=== PATIENT | female | born 1985 | race Asian ===

== ENCOUNTER 2022-01-07 12:17 | Inpatient (IN) | payer OTHER ==
[2022-01-07 13:58] VITALS: BMI 25.2
[2022-01-07] MEDS ORDERED: ONDANSETRON 4 MG/2 ML VIAL IVPUSH PRN (14:17)
[2022-01-07] MEDS ORDERED: morphine SULFATE/PF 1 MG/2 ML (2cc Syringe - QUVA) EP ONE (14:17)
[2022-01-07] MEDS ORDERED: CITRIC ACID/SODIUM CITRATE 30 ML UNIT-DOSE CUP PO ONE (15:00)
[2022-01-07] MEDS ORDERED: morphine SULFATE/PF 1 MG/2 ML (2cc Syringe - QUVA) ONE (15:08)
[2022-01-07] MEDS ORDERED: SODIUM CHLORIDE 0.9% P/F 10 ML VIAL IJ ONE (15:09)
[2022-01-07] MEDS ORDERED: ceFAZolin SODIUM 1 GM VIAL ONE (15:09)
[2022-01-07] MEDS ORDERED: ELECTROLYTE-148 SOLN 1,000 ML IV SCH (15:15)
[2022-01-07] MEDS ORDERED: PHENYLEPHRINE HCL 10 MG/1 ML SINGLE DOSE VIAL ONE (15:37)
[2022-01-07] MEDS ORDERED: OXYTOCIN 10 UNITS/ML VIAL ONE (15:48)
[2022-01-07] MEDS ORDERED: OXYTOCIN 20 UNITS in 0.9% NS 20 UNIT/1,000 ML INFUS.BAG IV ONE ×2 (15:48→17:24)
[2022-01-07] MEDS ORDERED: KETOROLAC TROMETHAMINE 30 MG/1 ML VIAL ONE (15:54)
[2022-01-07] MEDS ORDERED: ONDANSETRON 4 MG/2 ML VIAL ONE (15:54)
[2022-01-07] MEDS: OXYTOCIN 20 UNITS in 0.9% NS 20 UNIT/1,000 ML INFUS.BAG IV SCH (16:45)
[2022-01-07] MEDS ORDERED: SENNOSIDES/DOCUSATE COMBO (SENNA PLUS) TABLET (UD) PO PRN (16:51)
[2022-01-07] MEDS ORDERED: BENZOCAINE 20% 57 GM BOTTLE TP PRN (16:51)
[2022-01-07] MEDS ORDERED: METHYLERGONOVINE MALEATE 0.2 MG/1 ML AMP IM PRN (16:51)
[2022-01-07] MEDS ORDERED: WITCH HAZEL 50% (TUCKS) 40 PAD/JAR PAD TP PRN (16:51)
[2022-01-07] MEDS ORDERED: BENZOCAINE 28 GM HEMORRHOIDAL OINTMENT TP PRN (16:51)
[2022-01-07] MEDS ORDERED: ACETAMINOPHEN 325 MG TABLET (FP) PO PRN (16:51)
[2022-01-07 17:01] LABS: CORD BASE EXCESS -3.9 mmol/L (0-2); CORD HCO3 23.9 mmHg (20-29); CORD PCO2 54.4 mmHg (30-78); CORD pH 7.261 (7.14-7.44)
[2022-01-07 17:04] LABS: CORD BASE EXCESS -2.7 mmol/L (0-2); CORD HCO3 22.9 mmHg (20-29); CORD PCO2 42.8 mmHg (30-78); CORD pH 7.347 (7.14-7.44)
[2022-01-07] MEDS: IBUPROFEN 800 MG/8 ML IJ IVPB PRN (21:02)
[2022-01-08] MEDS: OXYTOCIN 20 UNITS in 0.9% NS 20 UNIT/1,000 ML INFUS.BAG IV SCH (04:25)
[2022-01-08] MEDS ORDERED: oxyCODONE HCL 5 MG TABLET PO PRN ×2 (04:52)
[2022-01-08] MEDS: IBUPROFEN 800 MG/8 ML IJ IVPB PRN (06:27)
[2022-01-08 07:44] LABS: BASO % 0.4 % (0-2.0); EOS % 1.2 % (0-4.5); HEMATOCRIT 40.4 % (32.4-45.2); HEMOGLOBIN 13.2 GM/dL (10.7-15.3); LYMPH % 17.3 % (8-40); MCH 30.7 pg (25.7-33.7); MCHC 32.8 g/dl (32.0-36.0); MEAN CELL VOLUME 93.6 fl (80-96); MEAN PLT VOLUME 9.3 fl (7.5-11.1); MONO % 7.5 % (3.8-10.2); NEUT % 73.6 % (42.8-82.8); PLATELET COUNT 149 10^3/uL (134-434); RBC 4.31 M/mm3 (3.60-5.2); RDW 13.6 % (11.6-15.6); WHITE BLOOD COUNT 12.4 K/mm3 (4.0-10.0)
[2022-01-08] MEDS: ENOXAPARIN NA (PORCINE) 40 MG/0.4 ML DISP.SYRIN SQ SCH (10:04)
[2022-01-08] MEDS: PRENATAL VITAMINS W/ FOLIC ACID TABLET (FP) PO SCH (10:04)
[2022-01-08] MEDS: IBUPROFEN 600 MG TABLET (FP) PO PRN ×2 (15:59→22:13)
[2022-01-08] MEDS: SIMETHICONE 80 MG TAB.CHEW (FP) PO PRN ×2 (16:01→22:13)
[2022-01-08] MEDS ORDERED: BISACODYL 10 MG SUPP.RECT RC PRN (16:52)
[2022-01-09] MEDS: IBUPROFEN 600 MG TABLET (FP) PO PRN ×4 (03:58→22:46)
[2022-01-09] MEDS: SIMETHICONE 80 MG TAB.CHEW (FP) PO PRN ×4 (03:58→22:47)
[2022-01-09] MEDS: PRENATAL VITAMINS W/ FOLIC ACID TABLET (FP) PO SCH (10:29)
[2022-01-09] MEDS: ENOXAPARIN NA (PORCINE) 40 MG/0.4 ML DISP.SYRIN SQ SCH (10:29)
[2022-01-10] MEDS: SIMETHICONE 80 MG TAB.CHEW (FP) PO PRN (06:56)
[2022-01-10] MEDS: IBUPROFEN 600 MG TABLET (FP) PO PRN (06:56)
[2022-01-10 07:17] LABS: BASO % 0.4 % (0-2.0); EOS % 2.3 % (0-4.5); HEMATOCRIT 35.8 % (32.4-45.2); HEMOGLOBIN 12.5 GM/dL (10.7-15.3); LYMPH % 25.9 % (8-40); MCH 31.9 pg (25.7-33.7); MCHC 34.9 g/dl (32.0-36.0); MEAN CELL VOLUME 91.5 fl (80-96); MEAN PLT VOLUME 8.6 fl (7.5-11.1); MONO % 8.4 % (3.8-10.2); PLATELET COUNT 191 10^3/uL (134-434); RBC 3.91 M/mm3 (3.60-5.2); RDW 13.6 % (11.6-15.6); WHITE BLOOD COUNT 9.7 K/mm3 (4.0-10.0)
[2022-01-10] MEDS: OXYTOCIN 20 UNITS in 0.9% NS 20 UNIT/1,000 ML INFUS.BAG IV SCH (07:21)
[2022-01-10 08:53] VITALS: BP 116/78; PULSE 88; TEMP 98
[2022-01-10] MEDS: ENOXAPARIN NA (PORCINE) 40 MG/0.4 ML DISP.SYRIN SQ SCH (09:53)
[2022-01-10] MEDS: PRENATAL VITAMINS W/ FOLIC ACID TABLET (FP) PO SCH (09:53)
== END 2022-01-10 13:55 | disposition home or self-care (01) | DRG 540 ==
LOC: JLDR 12:17 → J3W 18:18
PROVIDERS: ADMIT Obstetrics & Gynecology; ATTEND Obstetrics & Gynecology
PROC: 10D00Z1 Extraction of Products of Conception, Low, Open Approach (ICD-10-PCS; principal; 2022-01-07)
DX: O32.1XX0 Maternal care for breech presentation, not applicable or unspecified (principal); O24.429 Gestational diabetes mellitus in childbirth, unspecified control; O34.13 Maternal care for benign tumor of corpus uteri, third trimester; D25.9 Leiomyoma of uterus, unspecified; Z3A.40 40 weeks gestation of pregnancy; Z37.0 Single live birth
CPT/HCPCS: 36415; 36600; 80048; 82803; 85025; 85610; 85730; 86780; 86850; 86900; 86901; 88307-TC; C9803-CS; U0003; U0005